=== PATIENT | female | born 1955 | race Caucasian/White ===

== ENCOUNTER → 2020-11-01 | Day surgery (SDC) | payer OTHER ==
[2020-10-26 15:31] LABS: BASOPHILS # (AUTO) 0.1 X10'3 (0-0.2); BASOPHILS % (AUTO) 0.5 % (0-1); EOSINOPHILS # (AUTO) 0.2 X10'3 (0-0.9); EOSINOPHILS % (AUTO) 1.5 % (0-6); LYMPHOCYTES # (AUTO) 1.8 X10'3 (1.1-4.8); LYMPHOCYTES % (AUTO) 15.4 % (21-51); MEAN CORPUSCULAR HEMOGLOBIN 28.7 PG (27.0-31.0); MEAN CORPUSCULAR HGB CONC 32.6 g/dL (33.0-36.5); MEAN CORPUSCULAR VOLUME 88.2 FL (78-98); MEAN PLATELET VOLUME 6.9 FL (7.4-10.4); MONOCYTES # (AUTO) 0.5 X10'3 (0-0.9); MONOCYTES % (AUTO) 4.1 % (2-12); NEUTROPHILS # (AUTO) 9.4 X10'3 (1.8-7.7); NEUTROPHILS % (AUTO) 78.5 % (42-75); PRE OP HEMATOCRIT 41.1 % (35.0-45.0); PRE OP HEMOGLOBIN 13.4 g/dL (12.0-16.0); PRE OP PLATELET COUNT 387 X10'3 (140-440); RED BLOOD COUNT 4.66 X10'6 (4.20-5.60); RED CELL DISTRIBUTION WIDTH 13.9 % (11.5-14.5)
[2020-10-26 15:47] LABS: PRE OP PROTIME 10.3 SECONDS (9.0-12.0)
[2020-10-26 15:53] LABS: ALBUMIN 2.6 G/DL (3.4-5.0); ALKALINE PHOSPHATASE 98 IU/L (46-116); CHLORIDE 105 MMOL/L (99-107); CREATININE 0.68 MG/DL (0.40-0.90); PRE OP ALT 14 U/L (30-65); PRE OP ANION GAP 5 (8-16); PRE OP POTASSIUM 3.9 MMOL/L (3.4-5.1); PRE OP SODIUM 139 MMOL/L (135-145); TOTAL CARBON DIOXIDE 29.5 MMOL/L (24-32); eGFR 87 ML/MIN
[2020-10-26 16:19] LABS: ALBUMIN/GLOBULIN RATIO 0.7 (1.1-1.5); BLOOD UREA NITROGEN 18 MG/DL (7-18); BUN/CREATININE RATIO 26.5 (6.6-38.0); CALCIUM 8.6 MG/DL (8.5-10.1); PRE OP AST 6 U/L (10-37); PRE OP BILIRUB, TOTAL 0.2 MG/DL (0.0-1.0); PRE OP GLUCOSE 85 MG/DL (70-104); TOTAL PROTEIN 6.6 G/DL (6.4-8.2)
[~2020-11-01] VITALS: Ht 165.1 cm; Wt 96.1 kg
[~2020-11-01] MED LIST: ALPR0.5T9 PO; BUSP30TA3 PO; DULO60CA65 PO; LEVO25TA2 PO; LIDOcaine 1% W/epiNEPHrine 1:100,000 20ml vial ONE; LIDOcaine 2% (20mg/ml) 5ml vial ONE; LISI40TA13 PO; MECO10005 PO; PANT40TA54 PO; VITAMIN D3 PO; ceFAZolin 1000mg inj ONE; cefTAZidime 1gm inj ONE; cocaine 4% topical solution 4ml bottle ONE; dexamethasone sod phosphate 4mg/ml inj. ONE; diazepam 5mg tablet PO ONE; famotidine 20mg tablet PO ONE; fentaNYL /PF 50mcg/ml 5ml ampule ONE; gelatin sponge, absorbable (Gelfoam 100) sponge TP ONE; methylPREDNISolone acetate 80mg/ml inj**IM only ONE; midazolam 1 mg/ML 2ml injection ONE; morphine 2 MG/ML inj. syringe IV PRN; morphine 4 MG/ML inj SYRINge IV PRN; mupirocin 2% ointment 22GM ONE; mupirocin 2% ointment 22GM TP SCH; ondansetron/PF 4mg/2ml inj IV PRN; ondansetron/PF 4mg/2ml inj ONE; oxymetazoline 15 ML nasal spray NS ONE; oxymetazoline 15 ML nasal spray NS PRN; proCHLORperazine 10 MG/2 ml inj IV PRN; propofol inj 20 ML IV ONE; ringers solution, lacted 1,000 ML IV SCH; salt irrigation nasal spray 45 ML SPRAY NS PRN; sevoflurane 250ml liquid IH ONE
[2020-11-01] MEDS: oxymetazoline 15 ML nasal spray NS ONE ×2 (10:29→14:45)
[2020-11-01 10:58] VITALS: BP 133/88
[2020-11-01 14:37] VITALS: BP 153/78
--- NOTE | 2020-11-01 14:37 | NUR ---
ASSUME CARE PT AWAKE ALERT VSS NO DISTRESS NASAL PLUG IN LEFT NARE INTACT WILL PULL IN 30 MINS PER PROTOCOL. Addendum: 11/01/20 at 1526 by Jennifer Martin RN Amended: Links added.
[2020-11-01 14:47] VITALS: BP 153/70
[2020-11-01 14:57] VITALS: BP 171/80
[2020-11-01 15:07] VITALS: BP 148/86
[2020-11-01 15:17] VITALS: BP 134/80
== END | disposition home or self-care (01) ==
LOC: PAS 09:44
PROVIDERS: ATTEND Otolaryngology
DX: J32.8 Other chronic sinusitis (principal); J34.89 Other specified disorders of nose and nasal sinuses; J33.8 Other polyp of sinus; I10 Essential (primary) hypertension; K21.9 Gastro-esophageal reflux disease without esophagitis; F41.9 Anxiety disorder, unspecified; F32.9 Major depressive disorder, single episode, unspecified; E66.01 Morbid (severe) obesity due to excess calories; Z68.35 Body mass index [BMI] 35.0-35.9, adult; Z88.2 Allergy status to sulfonamides; Z88.8 Allergy status to other drugs, medicaments and biological substances; Z79.899 Other long term (current) drug therapy; Z79.01 Long term (current) use of anticoagulants; Z98.51 Tubal ligation status; Z90.710 Acquired absence of both cervix and uterus; Z98.890 Other specified postprocedural states
CPT/HCPCS: 31254; 31267; 36415; 61782; 80053; 82948; 85025; 85576; 85610; 85730; 87070; 87075; 87102; 93005; A6402; C9250; J0690; J0713; J1040; J1100; J2001; J2250; J2405; J2704; J3010; J7040; J7120; A4618; A7000